=== PATIENT | male | born 1995 | race Two or more races ===

== ENCOUNTER 2021-05-06 10:50 | Emergency (ER) | payer MEDICAID ==
[~2021-05-06] VITALS: Ht 160 cm; Wt 64.4 kg
[2021-05-06] MEDS ORDERED: OCREVUS (11:01)
--- NOTE | 2021-05-06 11:10 | NUR ---
at bedside for assessment
--- NOTE | 2021-05-06 11:25 | NUR ---
Patient taken to CT at this time for headache
[2021-05-06] MEDS ORDERED: ONDANSETRON ODT 4 MG TAB.RAPDIS SL ONE (12:15)
[2021-05-06] MEDS ORDERED: IBUPROFEN 600 MG TABLET PO ONE (12:15)
[2021-05-06] MEDS ORDERED: ONDA4TAB11 PO (12:24)
[2021-05-06] MEDS ORDERED: IBUP-1955 PO (12:24)
[2021-05-06] MEDS ORDERED: ONDANSETRON ODT 4 MG TAB.RAPDIS ONE (12:31)
[2021-05-06] MEDS ORDERED: IBUPROFEN 600 MG TABLET ONE (12:31)
--- NOTE | 2021-05-06 12:44 | NUR ---
Patient discharged to home in stable condition. Patient able to ambulate with steady gait, no signs of acute distress noted. Written and verbal after care instructions given. Patient verbalizes understanding of instructions. Stressed follow up or return to ER for worsening s/s.
[2021-05-06 12:55] VITALS: BP 129/76
== END 2021-05-06 12:56 | disposition home or self-care (01) ==
LOC: ER 10:50
DX: S06.0X0A Concussion without loss of consciousness, initial encounter (principal); W01.190A Fall on same level from slipping, tripping and stumbling with subsequent striking against furniture, initial encounter; Y92.89 Other specified places as the place of occurrence of the external cause; G35 Multiple sclerosis
CPT/HCPCS: 70450; A4663; Q0162